=== PATIENT | female | born 1955 | race Caucasian/White ===

== ENCOUNTER 2021-05-27 22:11 | Emergency (ER) | payer BC, OTHER ==
[~2021-05-27] VITALS: Ht 162.6 cm; Wt 90.7 kg
--- NOTE | 2021-05-27 22:15 | NUR ---
ELI Fernando [facility] [employer] FOR ETOH, PT TO BED 15, PLACED ON MONITOR, VSS, NAD NOTED, PENDING ER PROVIDER EVAL
--- NOTE | 2021-05-27 22:23 | NUR ---
PT PROVIDED WITH WARM BLANKETS.
[2021-05-27] MEDS ORDERED: IV D5/ 0.9% NACL 1,000 ML IV ONE (22:30)
[2021-05-27 23:08] LABS: BASOPHILS # (AUTO) 0.2 K/uL (0.0-0.2); BASOPHILS % (AUTO) 1.8 % (0.0-2.0); EOSINOPHILS % (AUTO) 1.4 % (0.0-6.0); HEMATOCRIT 46 % (33-45); HEMOGLOBIN 15.3 g/dL (11.5-14.8); LYMPHOCYTES # (AUTO) 1.1 K/uL (0.8-4.8); LYMPHOCYTES % (AUTO) 8.5 % (20.0-44.0); MEAN CORPUSCULAR HGB CONC 33 g/dl (31.0-36.0); MEAN CORPUSCULAR VOLUME 91 fL (82-100); MONOCYTES # (AUTO) 0.4 K/uL (0.1-1.30); MONOCYTES % (AUTO) 2.8 % (2.0-12.0); NEUTROPHILS # (AUTO) 11.4 K/uL (1.8-8.9); NEUTROPHILS % (AUTO) 85.5 % (43.0-81.0); PLATELET COUNT (AUTO) 278 K/uL (150-450); RED BLOOD CELL COUNT(AUTO) 5.09 MIL/uL (4.0-5.2); WHITE BLOOD COUNT (AUTO) 13.3 K/uL (4.3-11.0)
--- NOTE | 2021-05-27 23:10 | NUR ---
BINDU ORTIZ/ COUSIN, [phone], CALLED FOR UPDATE
[2021-05-27 23:16] LABS: ALANINE AMINOTRANSFERASE 25 U/L (12-78); ALBUMIN 4.1 g/dL (3.4-5.0); ALCOHOL, BLOOD 203 mg/dL (0-0); ALKALINE PHOSPHATASE 53 U/L (46-116); ASPARTATE AMINOTRANSFERASE 18 U/L (15-37); BILIRUBIN,DIRECT 0.1 mg/dL (0.0-0.2); BILIRUBIN,TOTAL 0.2 mg/dL (0.2-1.0); CARBON DIOXIDE 21 mmol/L (21-32); CHLORIDE 103 mmol/L (98-107); CREATININE 0.8 mg/dL (0.6-1.3); GLUCOSE 136 mg/dL (74-106); POTASSIUM 3.7 mmol/L (3.5-5.1); SODIUM SERUM 141 mmol/L (136-145); TOTAL PROTEIN, SERUM 7.5 g/dL (6.4-8.2); UREA NITROGEN, BLOOD 14 mg/dL (7-18)
[2021-05-27 23:20] LABS: ACETAMINOPHEN 0 ug/ml (10-30)
[2021-05-27 23:53] LABS: THYROID STIMULATING HORMONE 3.689 uIU/mL (0.358-3.74)
[2021-05-28 00:01] LABS: BAND % (MANUAL) 5 % (0.0-5.0); EOSINOPHILS % (MANUAL) 2 % (0-4); LYMPHOCYTES % (MANUAL) 8 % (16-48); MONOCYTES % (MANUAL) 2 % (0-11.0); NEUTROPHILS % (MANUAL) 83 (42-76)
--- NOTE | 2021-05-28 00:03 | NUR ---
PT RETURN FROM CT.
[2021-05-28] MEDS ORDERED: ONDA4TAB5 PO (00:59)
--- NOTE | 2021-05-28 03:18 | NUR ---
SIOBHAN ORTIZ IS ON THE WAY TO TAKE PT HOME.
--- NOTE | 2021-05-28 03:38 | NUR ---
Patient discharged to home in stable condition. Written and verbal after care instructions given. Patient verbalizes understanding of instruction.
[2021-05-28 04:50] VITALS: BP 124/78
== END 2021-05-28 04:50 | disposition home or self-care (01) ==
LOC: ER 22:13
DX: F10.121 Alcohol abuse with intoxication delirium (principal); R41.82 Altered mental status, unspecified; Z79.899 Other long term (current) drug therapy; Y90.7 Blood alcohol level of 200-239 mg/100 ml
CPT/HCPCS: 36415; 70450; 71045; 72125; 80048; 80076; 80143; 80320; 84443; 84484; 85007; 85025; 93005; 96360; 96361; 99285; J7042; G0480